=== PATIENT | male | born 1980 | race African-American/Black ===

== ENCOUNTER 2016-08-23 20:09 | Emergency (ER) | payer OTHER ==
[~2016-08-23] VITALS: Ht 170.2 cm; Wt 59.6 kg
[~2016-08-23 20:09] MED LIST: HYDROXYZINE PAM25 MG PO; IBUPROFEN400 MG PO; IBUPROFEN800 MG PO; KEFLEX500 MG PO; LITHIUM CARBON300 M2 PO; NOHOMEMEDS; ZOFRAN4 MG PO
[2016-08-23 21:40] LABS: EOSINOPHIL (%) 0.1 % (0-5); IMMATURE GRANULOCYTE (%) 0.1 % (0.0-0.7); IMMATURE GRANULOCYTE COUNT 0.2 K/uL; LYMPHOCYTE COUNT 1.7 K/uL (1.0-2.8); MCH 29.6 PG (29.0-34.0); MCHC 35.8 G/DL (30.0-36.0); MCV 82.8 FL (86-99); MEAN PLAT.VOLUME 10.7 uM^3 (9.0-12.4); MONOCYTE (%) 4.2 % (3-12); MONOCYTE COUNT 0.7 K/uL (0-0.8); NEUTROPHIL (%) 84.8 % (45-76); NEUTROPHIL COUNT 13.1 K/uL (1.8-6.4); PLATELET COUNT 238 K/uL (156-360); RBC DIS.WIDTH-CV 12.1 % (11.8-14.6); RBC DIS.WIDTH-SD 35.9 % (39-53); RED BLOOD COUNT 4.59 M/uL (4.00-5.50); WHITE BLOOD COUNT 15.5 K/uL (4.1-10.2)
[2016-08-23 21:48] LABS: ADD MIUA? NO; BILIRUBIN NEGATIVE; BLOOD NEGATIVE; COLOR YELLOW ((YELLOW)); GLUCOSE (STRIP) NEGATIVE; KETONES >=80; LEUKOCYTES NEGATIVE; NITRITE NEGATIVE; PH, URINE 5.5 (5-8); PROTEIN (STRIP) 30; SPECIFIC GRAVITY 1.028 (1.000-1.030); UCUL ADDED? NO; UROBILINOGEN 0.2 MG/DL (0.2-1.0)
[2016-08-23 21:50] LABS: CHLORIDE 109 mEq/L (99-109); POTASSIUM 4.4 mEq/L (3.7-5.4); SODIUM 140 mEq/L (136-147)
[2016-08-23 21:52] LABS: GLUCOSE 75 mg/dL (70-99)
[2016-08-23 21:53] LABS: ANION GAP 13 MEQ/L (2-14)
[2016-08-23 21:54] LABS: TOTAL BILIRUBIN 0.6 mg/dL (0.0-1.0)
[2016-08-23 21:55] LABS: ALKALINE PHOSPHATASE 84 IU/L (3-129)
[2016-08-23 21:56] LABS: GFR ESTIMATE (CALCULATED) > 59 mL/min/
[2016-08-23 21:57] LABS: UREA NITROGEN (BUN) 13 mg/dL (9-23)
[2016-08-23 21:59] LABS: LIPASE 10 U/L (1.0-51.0)
[2016-08-24] MEDS ORDERED: ZOFRAN ODT4 MG PO (00:31)
[2016-08-24] MEDS ORDERED: BENTYL10 MG PO (00:31)
[2016-08-24] MEDS ORDERED: VENTOLIN HFA18 GM IH (02:02)
[2016-08-24 02:06] VITALS: BP 110/60
== END 2016-08-24 02:07 | disposition home or self-care (01) ==
LOC: EME 20:09
PROVIDERS: Emergency Medicine
DX: E86.0 Dehydration (principal); R11.2 Nausea with vomiting, unspecified; J20.8 Acute bronchitis due to other specified organisms; R19.7 Diarrhea, unspecified; F17.200 Nicotine dependence, unspecified, uncomplicated
CPT/HCPCS: 71020; 74177; 80053; 81003; 83690; 85025; 99281; 99285; J2405; J3010; J7030

== ENCOUNTER 2016-09-11 22:31 | Inpatient (IN) | payer OTHER ==
[~2016-09-11] VITALS: Ht 170.2 cm; Wt 61.5 kg
[~2016-09-11 22:31] MED LIST changes: +BENTYL10 MG PO; +VENTOLIN HFA18 GM IH; +ZOFRAN ODT4 MG PO
[2016-09-11 23:02] LABS: MCV 85.7 FL (86-99); MEAN PLAT.VOLUME 10.5 uM^3 (9.0-12.4); PLATELET COUNT 222 K/uL (156-360); RBC DIS.WIDTH-CV 12.3 % (11.8-14.6); RBC DIS.WIDTH-SD 37.7 % (39-53); RED BLOOD COUNT 4.67 M/uL (4.00-5.50)
[2016-09-11 23:06] LABS: WHITE BLOOD COUNT 7.4 K/uL (4.1-10.2)
[2016-09-11 23:09] LABS: CHLORIDE 112 mEq/L (99-109); POTASSIUM 3.3 mEq/L (3.7-5.4); SODIUM 144 mEq/L (136-147)
[2016-09-11 23:11] LABS: GLUCOSE 114 mg/dL (70-99)
[2016-09-11 23:12] LABS: ANION GAP 14 MEQ/L (2-14)
[2016-09-11 23:14] LABS: SERUM ETHYL ALCOHOL 111 mg/dL
[2016-09-11 23:15] LABS: GFR ESTIMATE (CALCULATED) > 59 mL/min/
[2016-09-11 23:16] LABS: UREA NITROGEN (BUN) 7 mg/dL (9-23)
[2016-09-11 23:28] LABS: AMPHETAMINE NEGATIVE (500 ng/mL); BARBITURATES NEGATIVE (200 ng/mL); BENZODIAZEPINES NEGATIVE (150 ng/mL); COCAINE NEGATIVE (150 ng/mL); METHADONE NEGATIVE (200 ng/mL); METHAMPHETAMINE NEGATIVE (500 ng/mL); OPIATES (MORPHINE) NEGATIVE (100 ng/mL); OXYCODONE NEGATIVE (100 ng/mL); PHENCYCLIDINE NEGATIVE (25 ng/mL); PROPOXYPHENE NEGATIVE (300 ng/mL); THC CANNABINOIDS NEGATIVE (50 ng/mL); TRICYCLIC ANTIDEPRESSANTS NEGATIVE (300 ng/mL)
[2016-09-11 23:29] LABS: INTERNAL CONTROLS VALID? YES
[2016-09-12] MEDS ORDERED: ADVIL,NUPRIN,M200 MG PO (00:08)
[2016-09-12] MEDS ORDERED: OMEPRAZOLE20 M2 PO (00:08)
[2016-09-12 01:37] VITALS: BP 126/69
[2016-09-12 07:57] VITALS: BP 152/72
[2016-09-12 16:19] VITALS: BP 116/68
[2016-09-13 08:00] VITALS: BP 123/78
[2016-09-13] MEDS ORDERED: LITHIUM CARBON300 M2 PO (09:50)
== END 2016-09-13 11:42 | disposition home or self-care (01) | DRG 885 ==
LOC: EME → EDBD 22:31 → EME 22:31 → EDOF 23:52 → 1WEST 23:52
PROVIDERS: Emergency Medicine
DX: F39 Unspecified mood [affective] disorder (principal); R45.851 Suicidal ideations; F10.229 Alcohol dependence with intoxication, unspecified; Y90.5 Blood alcohol level of 100-119 mg/100 ml; K21.9 Gastro-esophageal reflux disease without esophagitis; F17.210 Nicotine dependence, cigarettes, uncomplicated
CPT/HCPCS: 80048; 80164; 85027; 90839; 99281; 99284; G0480

== ENCOUNTER 2017-06-09 00:12 | Emergency (ER) | payer OTHER ==
[~2017-06-09] VITALS: Ht 170.2 cm; Wt 61.4 kg
[~2017-06-09 00:12] MED LIST changes: +ADVIL,NUPRIN,M200 MG PO; +OMEPRAZOLE20 M2 PO
[2017-06-09 01:32] LABS: HEMATOCRIT 44.7 % (38.0-50.0); MCHC 33.8 G/DL (30.0-36.0); MCV 88.9 FL (86-99); MEAN PLAT.VOLUME 10.1 uM^3 (9.0-12.4); PLATELET COUNT 299 K/uL (156-360); RBC DIS.WIDTH-CV 11.5 % (11.8-14.6); RBC DIS.WIDTH-SD 36.9 % (39-53); RED BLOOD COUNT 5.03 M/uL (4.00-5.50); WHITE BLOOD COUNT 12.4 K/uL (4.1-10.2)
[2017-06-09 01:41] LABS: CHLORIDE 104 mEq/L (99-109); SODIUM 141 mEq/L (136-147)
[2017-06-09 01:43] LABS: GLUCOSE 97 mg/dL (70-99)
[2017-06-09 01:44] LABS: ANION GAP 13 MEQ/L (2-14)
[2017-06-09 01:45] LABS: TOTAL BILIRUBIN 0.6 mg/dL (0.0-1.0)
[2017-06-09 01:46] LABS: ALKALINE PHOSPHATASE 86 IU/L (3-129)
[2017-06-09 01:47] LABS: GFR ESTIMATE (CALCULATED) > 59 mL/min/
[2017-06-09 01:48] LABS: UREA NITROGEN (BUN) 12 mg/dL (9-23)
[2017-06-09 02:47] VITALS: BP 117/84
== END 2017-06-09 03:00 | disposition home or self-care (01) ==
LOC: EME 00:12 → EXP 00:12
PROVIDERS: Physician Assistant
DX: H10.9 Unspecified conjunctivitis (principal); H57.11 Ocular pain, right eye; B19.20 Unspecified viral hepatitis C without hepatic coma
CPT/HCPCS: 70481; 80053; 85027; 99281; 99284; J7030

== ENCOUNTER 2017-06-12 18:23 | Emergency (ER) | payer OTHER ==
[~2017-06-12] VITALS: Ht 170.2 cm; Wt 61.8 kg
[2017-06-12] MEDS ORDERED: PREDNISONE20 MG PO (21:43)
[2017-06-12] MEDS ORDERED: MOTRIN800 MG PO (21:43)
[2017-06-12 21:49] VITALS: BP 111/78
== END 2017-06-12 21:51 | disposition home or self-care (01) ==
LOC: EME 18:23
DX: R65.10 Systemic inflammatory response syndrome (SIRS) of non-infectious origin without acute organ dysfunction (principal); J02.0 Streptococcal pharyngitis; F17.200 Nicotine dependence, unspecified, uncomplicated
CPT/HCPCS: 87651 90; 99281; 99284; J0561; J7512

== ENCOUNTER 2018-03-01 21:00 | Inpatient (IN) | payer OTHER ==
[~2018-03-01] VITALS: Ht 170.2 cm; Wt 67.8 kg
[~2018-03-01 21:00] MED LIST changes: +MOTRIN800 MG PO; +PREDNISONE20 MG PO
[2018-03-01 21:43] LABS: HEMATOCRIT 43.3 % (38.0-50.0); HEMOGLOBIN 15.4 G/DL (12.5-16.6); MCH 29.8 PG (29.0-34.0); MCHC 35.6 G/DL (30.0-36.0); MCV 83.9 FL (86-99); PLATELET COUNT 142 K/uL (156-360); RBC DIS.WIDTH-CV 11.9 % (11.8-14.6); RBC DIS.WIDTH-SD 36.3 % (39-53); RED BLOOD COUNT 5.16 M/uL (4.00-5.50); WHITE BLOOD COUNT 7.6 K/uL (4.1-10.2)
[2018-03-01] MEDS ORDERED: TYLENOL REGULA325 MG PO (21:52)
[2018-03-01 21:53] LABS: CHLORIDE 99 mEq/L (99-109); POTASSIUM 4.1 mEq/L (3.7-5.4); SODIUM 134 mEq/L (136-147)
[2018-03-01] MEDS ORDERED: ZYRTEC10 M3 PO (21:53)
[2018-03-01] MEDS ORDERED: LITHIUM CARBON300 M1 PO (21:53)
[2018-03-01 21:55] LABS: GLUCOSE 91 mg/dL (70-99); INTER. NORMALIZED RATIO 1.3
[2018-03-01 21:56] LABS: TOTAL PROTEIN 7.3 g/dL (6.4-8.3)
[2018-03-01 21:57] LABS: TOTAL BILIRUBIN 8.6 mg/dL (0.0-1.0)
[2018-03-01 21:58] LABS: PTT 34.8 SEC (25-37)
[2018-03-01 21:59] LABS: ALKALINE PHOSPHATASE 281 IU/L (3-129); CREATININE 0.9 mg/dL (0.6-1.3); GFR ESTIMATE (CALCULATED) > 59 mL/min/ (58.99-99999)
[2018-03-01 22:00] LABS: UREA NITROGEN (BUN) 8 mg/dL (9-23)
[2018-03-01 22:02] LABS: APPEARANCE CLEAR ((CLEAR)); BILIRUBIN MODERATE; BLOOD SMALL; COLOR AMBER ((YELLOW)); GLUCOSE (STRIP) NEGATIVE; KETONES NEGATIVE; LEUKOCYTES NEGATIVE; LIPASE 13 U/L (1.0-51.0); NITRITE NEGATIVE; PROTEIN (STRIP) NEGATIVE
[2018-03-01 22:03] LABS: ALT (GPT) 2937 IU/L (3-49); AST (GOT) 2431 IU/L (2-34)
[2018-03-01 22:04] LABS: ICTOTEST ND
[2018-03-01 22:09] LABS: BACTERIA RARE /HPF; EPITHELIAL CELLS RARE /HPF; MUCUS TRACE /LPF; RED BLOOD CELLS 0-5 /HPF (0-5); UCUL ADDED? YES
[2018-03-01 22:26] LABS: ABS NEUTROPHIL COUNT 5.5; ATYPICAL LYMPHOCYTE 8.8 %; BAND NEUTROPHILS 24.5 % (0-8.0); BASOPHILS 0.9 %; EOSINOPHIL ABS CT 0.1; EOSINOPHILS 0.9 % (0-5.0); LYMPHOCYTES 13.1 % (15.0-45.0); MONOCYTES 4.4 % (0-9.0); PLAT.SUFFICIENCY DECREASED; SEG.NEUTROPHILS 47.4 % (46.0-76.0)
[2018-03-02 00:23] LABS: DIRECT BILIRUBIN 6.8 mg/dL (0.0-0.3)
[2018-03-02 03:39] VITALS: BP 114/67
[2018-03-02 05:51] LABS: ACETAMINOPHEN (TYLENOL) < 10 mcg/mL (10-30)
[2018-03-02 07:40] VITALS: BP 137/58; BP 137/758
[2018-03-02 08:42] LABS: HEMATOCRIT 40.1 % (38.0-50.0); HEMOGLOBIN 13.8 G/DL (12.5-16.6); MCH 29.2 PG (29.0-34.0); MCHC 34.4 G/DL (30.0-36.0); PLATELET COUNT 124 K/uL (156-360); RBC DIS.WIDTH-CV 12.1 % (11.8-14.6); RBC DIS.WIDTH-SD 37.6 % (39-53); RED BLOOD COUNT 4.72 M/uL (4.00-5.50); WHITE BLOOD COUNT 5.9 K/uL (4.1-10.2)
[2018-03-02 09:07] LABS: BASOPHIL (%) 0.7 % (0-1); EOSINOPHIL (%) 1.5 % (0-5); EOSINOPHIL COUNT 0.1 K/uL (0-0.3); IMMATURE GRANULOCYTE (%) 0.8 % (0.0-0.7); LYMPHOCYTE (%) 36.8 % (15-42); LYMPHOCYTE COUNT 2.2 K/uL (1.0-2.8); MONOCYTE (%) 7.5 % (3-12); MONOCYTE COUNT 0.4 K/uL (0-0.8); NEUTROPHIL (%) 52.7 % (45-76); NEUTROPHIL COUNT 3.1 K/uL (1.8-6.4); PLAT.SUFFICIENCY DECREASED
[2018-03-02 10:06] LABS: ALBUMIN 3.6 g/dL (3.2-4.8); CHLORIDE 102 mEq/L (99-109); POTASSIUM 4.6 mEq/L (3.7-5.4); SODIUM 135 mEq/L (136-147)
[2018-03-02 10:08] LABS: GLUCOSE 82 mg/dL (70-99)
[2018-03-02 10:10] LABS: TOTAL BILIRUBIN 9.7 mg/dL (0.0-1.0)
[2018-03-02 10:12] LABS: ALKALINE PHOSPHATASE 242 IU/L (3-129); GFR ESTIMATE (CALCULATED) > 59 mL/min/ (58.99-99999)
[2018-03-02 10:13] LABS: TOTAL PROTEIN 6.1 g/dL (6.4-8.3); UREA NITROGEN (BUN) 11 mg/dL (9-23)
[2018-03-02 10:14] LABS: DIRECT BILIRUBIN 7.7 mg/dL (0.0-0.3)
[2018-03-02 10:15] LABS: ALT (GPT) 3165 IU/L (3-49); AST (GOT) 2708 IU/L (2-34)
[2018-03-02 11:36] LABS: HEPATITIS B SURFACE ANTIGEN Nonreactive
[2018-03-02 11:37] LABS: ANTI-HEPATITIS B CORE (IGM) Nonreactive
[2018-03-02 19:42] VITALS: BP 121/71
[2018-03-02 21:55] LABS: MONOSPOT (MONONUCLEOSIS SEROL) POSITIVE
[2018-03-02 23:40] VITALS: BP 120/67
[2018-03-03 01:33] LABS: BENZODIAZEPINES, URINE SCREEN Negative (200 ng/mL)
[2018-03-03 04:12] VITALS: BP 123/68
[2018-03-03 06:08] LABS: HEMATOCRIT 39.2 % (38.0-50.0); HEMOGLOBIN 13.6 G/DL (12.5-16.6); MCH 29.1 PG (29.0-34.0); MCHC 34.7 G/DL (30.0-36.0); MCV 83.8 FL (86-99); PLATELET COUNT 122 K/uL (156-360); RBC DIS.WIDTH-CV 12.5 % (11.8-14.6); RBC DIS.WIDTH-SD 37.8 % (39-53); RED BLOOD COUNT 4.68 M/uL (4.00-5.50); WHITE BLOOD COUNT 14.2 K/uL (4.1-10.2)
[2018-03-03 06:21] LABS: INTER. NORMALIZED RATIO 1.3
[2018-03-03 06:29] LABS: CHLORIDE 103 MEQ/L (99-109); GFR ESTIMATE (CALCULATED) > 59 mL/min/ (58.99-99999); GLUCOSE 88 mg/dL (70-99); POTASSIUM 4.1 MEQ/L (3.7-5.4); SODIUM 136 MEQ/L (136-147); UREA NITROGEN (BUN) 8 mg/dL (9-23)
[2018-03-03 06:39] LABS: ABS NEUTROPHIL COUNT 3.7; ACANTHOCYTES 1+; ATYPICAL LYMPHOCYTE 38.3 %; BURR CELLS 3+; EOSINOPHIL ABS CT 0.1; EOSINOPHILS 0.9 % (0-5.0); LYMPHOCYTES 27.8 % (15.0-45.0); MONOCYTES 6.9 % (0-9.0); OVALOCYTES 1+; PLAT.SUFFICIENCY DECREASED; POIKILOCYTOSIS 3+; TEAR DROP CELLS 2+
[2018-03-03 06:44] LABS: ALKALINE PHOSPHATASE 183 IU/L (3-129); CHLORIDE 102 MEQ/L (99-109); DIRECT BILIRUBIN 9.8 mg/dL (0.0-0.3); GFR ESTIMATE (CALCULATED) > 59 mL/min/ (58.99-99999); GLUCOSE 87 mg/dL (70-99); POTASSIUM 4.1 MEQ/L (3.7-5.4); SODIUM 136 MEQ/L (136-147); TOTAL BILIRUBIN 14.8 MG/DL (0.0-1.0); TOTAL PROTEIN 5.1 G/DL (6.4-8.3); UREA NITROGEN (BUN) 8 mg/dL (9-23)
[2018-03-03 06:53] LABS: SEG.NEUTROPHILS 26.1 % (46.0-76.0)
[2018-03-03 06:59] LABS: ALT (GPT) 2252 IU/L (3-49); AST (GOT) 1197 IU/L (2-34)
[2018-03-03 07:01] LABS: PTT 39.4 SEC (25-37)
[2018-03-03 07:17] VITALS: BP 119/69
[2018-03-03 12:08] VITALS: BP 130/70
[2018-03-03 15:54] VITALS: BP 121/69
[2018-03-03 19:17] VITALS: BP 125/77
[2018-03-03 23:39] VITALS: BP 123/82
[2018-03-04 03:35] VITALS: BP 114/66
[2018-03-04 05:51] LABS: HEMATOCRIT 36.4 % (38.0-50.0); HEMOGLOBIN 12.7 G/DL (12.5-16.6); MCH 29.5 PG (29.0-34.0); MCHC 34.9 G/DL (30.0-36.0); MCV 84.5 FL (86-99); PLATELET COUNT 134 K/uL (156-360); RBC DIS.WIDTH-CV 12.5 % (11.8-14.6); RBC DIS.WIDTH-SD 38.5 % (39-53); RED BLOOD COUNT 4.31 M/uL (4.00-5.50); WHITE BLOOD COUNT 13.8 K/uL (4.1-10.2)
[2018-03-04 06:23] LABS: ALBUMIN 3.1 G/DL (3.2-4.8); ALKALINE PHOSPHATASE 179 IU/L (3-129); CHLORIDE 102 MEQ/L (99-109); CREATININE 0.8 MG/DL (0.6-1.3); DIRECT BILIRUBIN 12.5 mg/dL (0.0-0.3); GFR ESTIMATE (CALCULATED) > 59 mL/min/ (58.99-99999); SODIUM 139 MEQ/L (136-147); TOTAL BILIRUBIN 16.6 MG/DL (0.0-1.0); TOTAL PROTEIN 5.1 G/DL (6.4-8.3); UREA NITROGEN (BUN) 7 mg/dL (9-23)
[2018-03-04 06:46] LABS: ALT (GPT) 1417 IU/L (3-49); AST (GOT) 411 IU/L (2-34); GLUCOSE 112 mg/dL (70-99)
[2018-03-04 07:42] LABS: ANISOCYTOSIS NONE SEEN; ATYPICAL LYMPHOCYTE 40.3 %; EOSINOPHIL ABS CT 0.1; EOSINOPHILS 0.9 % (0-5.0); LYMPHOCYTES 28.1 % (15.0-45.0); MONOCYTES 1.7 % (0-9.0); PLAT.SUFFICIENCY DECREASED; SEG.NEUTROPHILS 28.1 % (46.0-76.0); SMUDGE CELLS 40.4
[2018-03-04 07:49] LABS: BAND NEUTROPHILS 0.9 % (0-8.0)
[2018-03-04 08:11] VITALS: BP 136/81
[2018-03-04 09:59] LABS: HCV RNA (LOG IU/mL) 5.94 (())
[2018-03-04 12:20] LABS: ANTI-HEPATITIS A VIRUS (IGM) REACTIVE
[2018-03-04 14:53] VITALS: BP 134/78
[2018-03-05] VITALS: BP 114/65
[2018-03-05 05:51] LABS: HEMATOCRIT 33.4 % (38.0-50.0); HEMOGLOBIN 11.7 G/DL (12.5-16.6); MCH 29.6 PG (29.0-34.0); MCV 84.6 FL (86-99); PLATELET COUNT 165 K/uL (156-360); RBC DIS.WIDTH-CV 12.7 % (11.8-14.6); RBC DIS.WIDTH-SD 39.2 % (39-53); RED BLOOD COUNT 3.95 M/uL (4.00-5.50); WHITE BLOOD COUNT 9.8 K/uL (4.1-10.2)
[2018-03-05 06:29] LABS: ALBUMIN 3.5 G/DL (3.2-4.8); ALKALINE PHOSPHATASE 206 IU/L (3-129); CHLORIDE 105 MEQ/L (99-109); CREATININE 0.4 MG/DL (0.6-1.3); GFR ESTIMATE (CALCULATED) > 59 mL/min/ (58.99-99999); GLUCOSE 93 mg/dL (70-99); POTASSIUM 3.5 MEQ/L (3.7-5.4); SODIUM 139 MEQ/L (136-147); TOTAL BILIRUBIN 15.6 MG/DL (0.0-1.0); UREA NITROGEN (BUN) 6 mg/dL (9-23)
[2018-03-05 06:30] LABS: ALT (GPT) 1092 IU/L (3-49); AST (GOT) 211 IU/L (2-34); TOTAL PROTEIN 5.9 G/DL (6.4-8.3)
[2018-03-05 07:56] VITALS: BP 119/62
[2018-03-05 15:29] VITALS: BP 144/85
[2018-03-05 23:53] VITALS: BP 147/91
[2018-03-06 06:41] LABS: ALBUMIN 3.5 G/DL (3.2-4.8); ALKALINE PHOSPHATASE 223 IU/L (3-129); CHLORIDE 105 MEQ/L (99-109); GLUCOSE 102 mg/dL (70-99); SODIUM 139 MEQ/L (136-147); TOTAL PROTEIN 6.5 G/DL (6.4-8.3); UREA NITROGEN (BUN) 10 mg/dL (9-23)
[2018-03-06 06:45] LABS: AST (GOT) 112 IU/L (2-34); CREATININE 0.9 MG/DL (0.6-1.3); GFR ESTIMATE (CALCULATED) > 59 mL/min/ (58.99-99999); POTASSIUM 4.4 MEQ/L (3.7-5.4); TOTAL BILIRUBIN 7.7 MG/DL (0.0-1.0)
[2018-03-06 06:51] LABS: ALT (GPT) 801 IU/L (3-49)
[2018-03-06 07:45] VITALS: BP 139/74
[2018-03-06] MEDS ORDERED: IBUPROFEN600 MG PO (07:48)
== END 2018-03-06 09:37 | DRG 443 ==
LOC: EME 21:00 → EDOF 03-02 01:56 → 5SOUTH 03-02 01:56 → ENRESERV 03-02 02:01 → 5SOUTH 03-02 03:21
PROVIDERS: Emergency Medicine; Hospitalist; Internal Medicine; Physician Assistant; Physician Assistant Medical; Specialist
DX: B15.9 Hepatitis A without hepatic coma (principal); B18.2 Chronic viral hepatitis C; K76.89 Other specified diseases of liver; F31.9 Bipolar disorder, unspecified; F17.200 Nicotine dependence, unspecified, uncomplicated
CPT/HCPCS: 74176; 74181; 76705; 78227; 80048; 80053; 80076; 80178; 80306 90; 81003; 82248; 82948; 83605; 83690; 85025; 85027; 85610; 85730; 86308; 86664; 86665; 86705; 86708 90; 86709; 87040; 87086; 87340; 87522 90; 99281; 99285; A9537; G0480; J0133; J0692; J1644; J2543; J2805; J3010; J7030; J7050